=== PATIENT | male | born 1945 | race Caucasian/White ===

== ENCOUNTER 2022-05-09 13:53 | Emergency (ER) | payer OTHER ==
[~2022-05-09] VITALS: Ht 165.1 cm; Wt 88.5 kg
[2022-05-09 14:16] VITALS: BP_SYST 131
--- NOTE | 2022-05-09 16:00 | NUR ---
ER at triage examining patient.
[2022-05-09 16:03] LABS: BASOPHILS # (AUTO) 0.1 K/uL (0.0-0.2); BASOPHILS % (AUTO) 0.5 % (0.0-2.0); EOSINOPHILS # (AUTO) 0.5 K/uL (0.0-0.4); EOSINOPHILS % (AUTO) 4.3 % (0.0-4.0); HEMATOCRIT 34.3 % (36-54); HEMOGLOBIN 11.4 g/dL (14.0-18.0); LYMPHOCYTES # (AUTO) 1.6 K/uL (1.0-5.5); LYMPHOCYTES % (AUTO) 14.6 % (20.5-51.5); MEAN CORPUSCULAR HEMOGLOBIN 32 pg (27-31); MEAN CORPUSCULAR HGB CONC 33 % (32-36); MEAN CORPUSCULAR VOLUME 96 fL (79.0-98.0); MONOCYTES # (AUTO) 1.2 K/uL (0.0-1.0); MONOCYTES % (AUTO) 10.8 % (1.7-9.3); NEUTROPHILS # (AUTO) 7.5 K/uL (1.8-7.7); NEUTROPHILS % (AUTO) 69.8 % (40.0-70.0); PLATELET COUNT (AUTO) 261 K/uL (130-430); RED BLOOD CELL COUNT(AUTO) 3.56 MIL/uL (4.2-6.2); RED CELL DISTRIBUTION WIDTH 13.1 % (9.0-15.0); WHITE BLOOD COUNT (AUTO) 10.7 K/uL (4.8-10.8)
[2022-05-09 16:22] LABS: ANION GAP 11 (5-15); CALCIUM 8.9 mg/dL (8.4-11.0); CHLORIDE 102 mmol/L (98-107); CREATININE 1.36 mg/dL (0.55-1.30); GLUCOSE 95 mg/dL (70-99); UREA NITROGEN, BLOOD 29 mg/dL (8-21)
[2022-05-09 16:25] LABS: ALANINE AMINOTRANSFERASE 79 U/L (12-78); ALBUMIN 3.3 g/dL (3.4-4.8); ASPARTATE AMINOTRANSFERASE 33 U/L (10-37); C-REACTIVE PROTEIN QUANT 8.7 mg/dL (0-0.5); TOTAL BILIRUBIN 0.6 mg/dL (0.0-1.0)
[2022-05-09 17:41] LABS: INR 1.3 (0.80-1.20); PROTHROMBIN TIME 13.4 SECS (9.5-12.5)
[2022-05-09] MEDS ORDERED: CLIN-142 PO ×2 (17:44)
[2022-05-09] MEDS ORDERED: BACITRACIN 1 GM OINT TP ONE (17:45)
[2022-05-09 17:54] VITALS: BP_SYST 136
--- NOTE | 2022-05-09 17:55 | NUR ---
Patient given written and verbal discharge instructions and verbalizes understanding. ER MD discussed with patient the results and treatment provided. Patient in stable condition. ID arm band removed. Rx of clindamycin given. Patient educated on pain management and to follow up with PMD. Pain Scale 0. Opportunity for questions provided and answered. Medication side effect fact sheet provided.
== END 2022-05-09 17:55 | disposition home or self-care (01) ==
LOC: SED 13:53
DX: L03.011 Cellulitis of right finger (principal); I10 Essential (primary) hypertension; Z79.899 Other long term (current) drug therapy
CPT/HCPCS: 36415; 73140-TC; 80053; 83605; 85025; 85610-TC; 85730-TC; 86140; 99284

== ENCOUNTER 2022-05-12 13:27 | Inpatient (IN) | payer OTHER ==
[~2022-05-12] VITALS: Ht 180.3 cm; Wt 84.8 kg
[~2022-05-12 13:27] MED LIST: CLIN-142 PO
[2022-05-12 13:30] VITALS: BP_SYST 141
--- NOTE | 2022-05-12 13:30 | NUR ---
Patient to ER bed H2 to gown for evaluation. Side rails up. Report given to KIRSTIE PRIDE.
--- NOTE | 2022-05-12 13:44 | NUR ---
PT BIB SELF AWAKE AND ALERT AOX4, NO SOB OR DISTRESS. PT C/O PAIN TO R INDEX FINGER, 5/10. PT STATED HE PUNCTURE HIS FINGER ON 05/02/22 AND TRIED TO TREAT IT HIMSELF, BUT IT GOT INFECTED AND CAME TO ER ON 05/09/22. ON 05/09/[address] ALLEN WANTED TO ADMIT THE PT, BUT PT REFUSED ADMISSION. NOW PAIN ANF INFECTION HAS GOTTEN WORSE.
--- NOTE | 2022-05-12 13:47 | NUR ---
MD DR TRIVEDI AT BEDSIDE
[2022-05-12] MEDS ORDERED: VANCOMYCIN HCL 1,500 MG in NS 250 ML IV ONE (15:00)
[2022-05-12 15:20] LABS: ERYTHROCYTE SEDIMENTATION RATE 13 MM/HR (0-15)
[2022-05-12 15:22] LABS: BASOPHILS % (AUTO) 0.5 % (0.0-2.0); EOSINOPHILS # (AUTO) 0.3 K/uL (0.0-0.4); EOSINOPHILS % (AUTO) 4.3 % (0.0-4.0); HEMOGLOBIN 11.1 g/dL (14.0-18.0); LYMPHOCYTES # (AUTO) 1.3 K/uL (1.0-5.5); LYMPHOCYTES % (AUTO) 16.4 % (20.5-51.5); MEAN CORPUSCULAR HEMOGLOBIN 32 pg (27-31); MEAN CORPUSCULAR HGB CONC 34 % (32-36); MEAN CORPUSCULAR VOLUME 96 fL (79.0-98.0); MONOCYTES # (AUTO) 0.7 K/uL (0.0-1.0); NEUTROPHILS # (AUTO) 5.5 K/uL (1.8-7.7); NEUTROPHILS % (AUTO) 69.8 % (40.0-70.0); PLATELET COUNT (AUTO) 249 K/uL (130-430); RED BLOOD CELL COUNT(AUTO) 3.45 MIL/uL (4.2-6.2); RED CELL DISTRIBUTION WIDTH 13.2 % (9.0-15.0); WHITE BLOOD COUNT (AUTO) 7.8 K/uL (4.8-10.8)
[2022-05-12 15:42] LABS: ANION GAP 7 (5-15); CHLORIDE 104 mmol/L (98-107); CREATININE 1.08 mg/dL (0.55-1.30); GLUCOSE 102 mg/dL (70-99); UREA NITROGEN, BLOOD 29 mg/dL (8-21)
[2022-05-12 15:46] LABS: ALANINE AMINOTRANSFERASE 66 U/L (12-78); ASPARTATE AMINOTRANSFERASE 30 U/L (10-37); C-REACTIVE PROTEIN QUANT 1.1 mg/dL (0-0.5); TOTAL BILIRUBIN 0.4 mg/dL (0.0-1.0)
--- NOTE | 2022-05-12 16:16 | NUR ---
GENIE SWAB COLLECETD AND SENT TO LAB.
[2022-05-12] MEDS ORDERED: BACITRACIN 1 GM OINT TP ONE (17:09)
--- NOTE | 2022-05-12 18:00 | NUR ---
CONSULTATION PAGED REASON FOR CONSULTATION: CELLULITIS WAS CONSULT CALLED? Y PERSON WHO WAS NOTIFIED: [facility] CONSULTING PHYSICIAN: GOVIND DEVINE [employer]: [facility] [employer] PHONE NUMBER: [phone] REQUESTING PHYSICIAN: SONIDO LOPES
--- NOTE | 2022-05-12 18:29 | NUR ---
ADMISSION NOTE Received patient from ER via gurney. Patient admitted with diagnosis of cellulitis. Patient is awake, alert, oriented X 4. Patient oriented to hospital room, call light, toileting, pain management and safety-teach back done. Patient informed that Josh will be his nurse and that their room number is 102B. Call light within reach.
--- NOTE | 2022-05-12 18:30 | NUR ---
Patient will be admitted to care of DR PEREZ. Admitted to MED SURGE unit. Will go to room 102B. Belongings list completed. Complete and up to date summary report printed. SBAR report to be given at bedside with opportunity for questions.
[2022-05-12 18:33] VITALS: BP_SYST 168
--- NOTE | 2022-05-12 19:26 | NUR ---
CLOSING NOTE PROVIDED SBAR TO NIGHT RN, ENDORSED MED REC, PICTURE OF WOUND, AND MST ADMISSION TO RN. PATIENT IN BED, RESPIRATIONS EVEN, NON LABORED, BED IN LOW AND LOCKED POSITION CALL LIGHT WITHIN REACH. PATIENT ABLE TO MAKE NEEDS KNOWN. ENDORSED CARE TO NIGHT RN
--- NOTE | 2022-05-12 19:52 | NUR ---
PAIN SPOKE WITH DR PEREZ REGARDING THE PATIENTS NEED FOR PAIN MEDICATION. NEW ORDERS RECEIVED
[2022-05-12 20:00] VITALS: BP_SYST 136
[2022-05-12] MEDS ORDERED: HYDROcodone/ACETAMIN 5-325 MG TAB (NORCO/ VICODIN) PO PRN (20:00)
[2022-05-12] MEDS ORDERED: ACETAMINOPHEN 325 MG TABLET PO PRN (20:00)
[2022-05-13] VITALS: BP_SYST 138
[2022-05-13 01:45] VITALS: BP_SYST 136
[2022-05-13] MEDS ORDERED: TIOT4MIS5 IH (05:12)
[2022-05-13] MEDS ORDERED: LISI-209 PO (05:12)
[2022-05-13] MEDS ORDERED: OMEP20CA15 PO (05:12)
[2022-05-13] MEDS ORDERED: LIP40 PO (05:12)
[2022-05-13] MEDS ORDERED: APIX5TAB4 PO (05:12)
[2022-05-13] MEDS ORDERED: TAMS-11 PO (05:12)
[2022-05-13] MEDS: HYDROcodone/ACETAMIN 10-325 MG TAB PO PRN ×2 (08:23→16:19)
[2022-05-13] MEDS ORDERED: ONDANSETRON HCL 4 MG/2 ML VIAL IVP PRN (10:30)
[2022-05-13] MEDS ORDERED: LORazepam 2 MG/ML VIAL IVP PRN (10:30)
[2022-05-13 11:23] VITALS: BP_SYST 135
--- NOTE | 2022-05-13 12:00 | NUR ---
PATIENT C/O PAIN AND DISCOMFORT AT IV SITE IN LEFT AC, NO REDNESS OR SIGN OF INFILTRATE NOTED, IV PATENT, REMOVED PER PATIENT REQUEST, NEW 22G IV STARTED IN LFA
[2022-05-13 13:10] VITALS: BP_SYST 135
[2022-05-13] MEDS: ceFAZolin SODIUM 1 GM in D5W 50 ML IV SCH ×2 (13:36→21:22)
[2022-05-13] MEDS: NORMAL SALINE 5 ML DISP.SYRIN IVF SCH ×2 (13:44→21:24)
[2022-05-13] MEDS: IPRATROPIUM BROM 0.5 MG/2.5 ML VIAL.NEB (ATROVENT) INH SCH ×2 (15:12→20:06)
[2022-05-13 15:18] VITALS: BP_SYST 152
--- NOTE | 2022-05-13 15:30 | NUR ---
WOUND EVALUATION: Wound Consult received from Dr. Nelson. Thank you, Dr. Nelson, for the consult. Patient received in a [place] Bed, awake, alert, and oriented. Patient is ambulatory and able to turn independently. Long Score is 22. Past Medical History: lung cancer, bladder cancer, heart murmur, hyperlipidemia, hypertension, chronic obstructive pulmonary disease, tinnitus. Recent Labs: WBC 7.8, RBC 3.45, Hgb 11.1, Hct 33, Plt 249, BUN 29, creatinine 1.08, albumin 3. Microbiology: no growth with blood cultures. Intrinsic factors that delay wound healing: cancer history, hyperlipidemia, hypertension, chronic obstructive pulmonary disease. Extrinsic factors that delay wound healing: improper self care. Wound Assessment: 1. Right First Finger, Proximal Phalange, Dorsal Surface Wound, present on admission. Wound bed is 40% pink, 50% purple, 10% red. Moderate red drainage. No odor. Milka-wound intact. Measures 3.5 cm x 3.8 cm. Recommend: Cleanse wound with normal saline. Apply Venelex to wound bed. Cover with foam dressing. Wrap with Kerlix Luis wrap. Perform wound care daily, and as needed for dressing soiling or dislodgement. Also recommend: Remind patient to reposition every 2 hours with pillow support and off-load pressure areas with pillows for pressure re-distribution. Offload, elevate and float bilateral heels with pillows. Perform skin care and monitor skin integrity Q shift. Use moisture barrier cream on buttocks and other moisture susceptible areas QID and as needed for soiling.
--- NOTE | 2022-05-13 16:41 | NUR ---
PATIENT C/O 09/18 PAIN IN RIGHT FINGER, PRN NORCO ADMINISTERED PER EMAR
--- NOTE | 2022-05-13 18:52 | NUR ---
patient resting comfortably at this time, no c/o pain or discomfort, will endorse care to pm nurse
[2022-05-13 20:00] VITALS: BP_SYST 137
[2022-05-13] MEDS: ATORVASTATIN 20 MG TABLET PO SCH (21:22)
[2022-05-13] MEDS: APIXABAN 2.5 MG TABLET PO SCH (21:23)
[2022-05-14 00:16] VITALS: BP_SYST 146
[2022-05-14] MEDS: IPRATROPIUM BROM 0.5 MG/2.5 ML VIAL.NEB (ATROVENT) INH SCH ×4 (01:00→20:09)
[2022-05-14] MEDS: NORMAL SALINE 5 ML DISP.SYRIN IVF SCH ×3 (05:07→21:53)
[2022-05-14] MEDS: ceFAZolin SODIUM 1 GM in D5W 50 ML IV SCH ×3 (05:43→21:52)
[2022-05-14] MEDS: HYDROcodone/ACETAMIN 10-325 MG TAB PO PRN ×2 (06:59→15:50)
[2022-05-14 07:10] LABS: BASOPHILS # (AUTO) 0.1 K/uL (0.0-0.2); BASOPHILS % (AUTO) 0.6 % (0.0-2.0); EOSINOPHILS # (AUTO) 0.5 K/uL (0.0-0.4); EOSINOPHILS % (AUTO) 5.2 % (0.0-4.0); HEMATOCRIT 34.8 % (36-54); HEMOGLOBIN 11.7 g/dL (14.0-18.0); LYMPHOCYTES # (AUTO) 1.4 K/uL (1.0-5.5); LYMPHOCYTES % (AUTO) 15.8 % (20.5-51.5); MEAN CORPUSCULAR HEMOGLOBIN 32 pg (27-31); MEAN CORPUSCULAR HGB CONC 34 % (32-36); MEAN CORPUSCULAR VOLUME 95 fL (79.0-98.0); MONOCYTES # (AUTO) 0.9 K/uL (0.0-1.0); MONOCYTES % (AUTO) 10.3 % (1.7-9.3); NEUTROPHILS # (AUTO) 6.1 K/uL (1.8-7.7); NEUTROPHILS % (AUTO) 68.1 % (40.0-70.0); PLATELET COUNT (AUTO) 284 K/uL (130-430); RED BLOOD CELL COUNT(AUTO) 3.67 MIL/uL (4.2-6.2); RED CELL DISTRIBUTION WIDTH 13.3 % (9.0-15.0); WHITE BLOOD COUNT (AUTO) 8.9 K/uL (4.8-10.8)
--- NOTE | 2022-05-14 07:28 | NUR ---
pt slept through the night. pt medicated for pain at end of shift. dressing on r finger seen by dr. campbell. wound cx sent to lab. new dressing on r finger cdi
[2022-05-14 07:43] LABS: ANION GAP 9 (5-15); CHLORIDE 102 mmol/L (98-107); GLUCOSE 108 mg/dL (70-99); UREA NITROGEN, BLOOD 18 mg/dL (8-21)
[2022-05-14 08:00] VITALS: BP_SYST 148
[2022-05-14] MEDS ORDERED: TIOTROPIUM BROMIDE 4 GM IH SCH (09:00)
[2022-05-14] MEDS ORDERED: OMEPRAZOLE Non-Formulary 20 MG CAPSULE.DR PO SCH (09:00)
[2022-05-14] MEDS: PANTOPRAZOLE SODIUM 40 MG TAB PO SCH (10:20)
[2022-05-14] MEDS: TAMSULOSIN HCL 0.4 MG CAP PO SCH (10:20)
[2022-05-14] MEDS: lisinopriL 5 MG TABLET PO SCH (10:21)
[2022-05-14] MEDS: APIXABAN 2.5 MG TABLET PO SCH ×2 (10:23→20:43)
[2022-05-14 11:28] VITALS: BP_SYST 148
[2022-05-14] MEDS: BALSAM PERU/CASTOR OIL 56.7 GM OINT...G. TP SCH (13:17)
[2022-05-14 15:38] VITALS: BP_SYST 140
[2022-05-14 20:00] VITALS: BP_SYST 117
[2022-05-14] MEDS: ATORVASTATIN 20 MG TABLET PO SCH (20:40)
[2022-05-14] MEDS: MUPIROCIN 2% TOPICAL OINTMENT 22 GM TP SCH (20:41)
[2022-05-15] VITALS: BP_SYST 138
[2022-05-15] MEDS: IPRATROPIUM BROM 0.5 MG/2.5 ML VIAL.NEB (ATROVENT) INH SCH ×4 (01:37→20:19)
[2022-05-15] MEDS: NORMAL SALINE 5 ML DISP.SYRIN IVF SCH ×3 (05:14→22:42)
[2022-05-15] MEDS: ceFAZolin SODIUM 1 GM in D5W 50 ML IV SCH ×3 (05:15→22:41)
--- NOTE | 2022-05-15 06:23 | NUR ---
PATIENT IN BED RESTING, EYES CLOSED, NO S/S OF PAIN OR DISTRESS NOTED AT THIS TIME. PATIENT RECEIVED 2 DOSES OF ANCEF 1 GM DURING THIS SHIFT AND TOLERATED WITH NO COMPLAINTS. PATIENT VSS, PLACED NEW PIV TO R FA 22G SL. PATIENT AMB INDEPENDENTLY IN ROOM. PATIENT WITH DRSG TO RIGHT INDEX FINGER CDI, DRSG WAS CHANGED ON DAY SHIFT 05.14.2022. PATIENT C/O NO PAIN DURING THIS SHIFT, A&OX4, RA.
[2022-05-15 07:46] LABS: BASOPHILS % (AUTO) 0.3 % (0.0-2.0); EOSINOPHILS # (AUTO) 0.5 K/uL (0.0-0.4); EOSINOPHILS % (AUTO) 3.9 % (0.0-4.0); LYMPHOCYTES # (AUTO) 1.6 K/uL (1.0-5.5); MEAN CORPUSCULAR HEMOGLOBIN 32 pg (27-31); MEAN CORPUSCULAR HGB CONC 33 % (32-36); MEAN CORPUSCULAR VOLUME 96 fL (79.0-98.0); MONOCYTES # (AUTO) 1.1 K/uL (0.0-1.0); MONOCYTES % (AUTO) 8.2 % (1.7-9.3); NEUTROPHILS % (AUTO) 75.6 % (40.0-70.0); PLATELET COUNT (AUTO) 289 K/uL (130-430); RED BLOOD CELL COUNT(AUTO) 3.75 MIL/uL (4.2-6.2); WHITE BLOOD COUNT (AUTO) 13.2 K/uL (4.8-10.8)
[2022-05-15 07:51] VITALS: BP_SYST 134
[2022-05-15 07:59] LABS: ANION GAP 9 (5-15); C-REACTIVE PROTEIN QUANT 0.6 mg/dL (0-0.5); CALCIUM 9.2 mg/dL (8.4-11.0); CHLORIDE 99 mmol/L (98-107); CREATININE 1.05 mg/dL (0.55-1.30); GLUCOSE 103 mg/dL (70-99); UREA NITROGEN, BLOOD 18 mg/dL (8-21)
--- NOTE | 2022-05-15 08:00 | NUR ---
Start of shift Pt sitting up in bed eating his breakfast. No SOB/resp distress or pain/discomfort in right index finger at this time. IV in right forearm intact and patent. Bed in low position and side rails raised. Pt has Breathing treatment at this time. Pt encouraged to take deep breaths (pt has hx: COPD). Call light within reach. Addendum: 05/15/22 at 0959 by Margaux Crespo RN 2nd part of Bone scan will be done/completed this afternoon per specimen technician.
[2022-05-15] MEDS: PANTOPRAZOLE SODIUM 40 MG TAB PO SCH (08:13)
[2022-05-15] MEDS: TAMSULOSIN HCL 0.4 MG CAP PO SCH (08:13)
[2022-05-15] MEDS: APIXABAN 2.5 MG TABLET PO SCH ×2 (08:13→20:48)
[2022-05-15] MEDS: lisinopriL 5 MG TABLET PO SCH (08:13)
[2022-05-15 08:50] LABS: ERYTHROCYTE SEDIMENTATION RATE 50 MM/HR (0-15)
--- NOTE | 2022-05-15 11:15 | NUR ---
Note Dr Hernandes on the floor to assess pt and check labs/tests.
[2022-05-15 11:18] VITALS: BP_SYST 115
[2022-05-15] MEDS: HYDROcodone/ACETAMIN 10-325 MG TAB PO PRN (13:27)
--- NOTE | 2022-05-15 14:15 | NUR ---
note Pt off the floor via wheelchair for 2nd part of Bone scan on right 4th finger. Addendum: 05/15/22 at 1435 by Margaux Crespo RN pt back in room/bed from bone scan - NM merlint.
[2022-05-15] MEDS: MUPIROCIN 2% TOPICAL OINTMENT 22 GM TP SCH ×2 (15:00→20:55)
[2022-05-15] MEDS: BALSAM PERU/CASTOR OIL 56.7 GM OINT...G. TP SCH (15:00)
--- NOTE | 2022-05-15 15:14 | NUR ---
Note Right Index finger dressing change done at this time. Wound dry - no drainage or active bleeding noted at this time. Pt tolerated dressing change well. Call light within reach.
[2022-05-15 17:20] VITALS: BP_SYST 119
--- NOTE | 2022-05-15 18:30 | NUR ---
End of shift. Pt sitting up in bed eating his dinner. No SOB/resp distress noted at this time. No severe right finger pain/discomfort noted at this time. IV in right forearm intact and patent. Bed in low position and side rails raised. Call light within reach. Breathing treatments for COPD q6' helping pt with O2 sats all shift. Pt maintained with safety precautions all shift. No needs noted at this time.
[2022-05-15] MEDS: ATORVASTATIN 20 MG TABLET PO SCH (20:47)
[2022-05-15 22:03] VITALS: BP_SYST 100
[2022-05-16] VITALS: BP_SYST 117
[2022-05-16] MEDS: IPRATROPIUM BROM 0.5 MG/2.5 ML VIAL.NEB (ATROVENT) INH SCH ×3 (00:31→13:00)
--- NOTE | 2022-05-16 04:15 | NUR ---
NOTES: took over care from nurse Lindsey.
--- NOTE | 2022-05-16 04:23 | NUR ---
PT IS ALERT ORIENTED X 4 .STATES HE FEELS WELL
[2022-05-16] MEDS: ceFAZolin SODIUM 1 GM in D5W 50 ML IV SCH ×2 (05:42→13:32)
[2022-05-16] MEDS: NORMAL SALINE 5 ML DISP.SYRIN IVF SCH (05:43)
--- NOTE | 2022-05-16 06:40 | NUR ---
CLOSING NOTES; IV antibiotic completed. remain awake. IV site patent. no further complaints. for further assistance. will endorse to incoming shift.
[2022-05-16 07:20] LABS: BASOPHILS # (AUTO) 0.1 K/uL (0.0-0.2); BASOPHILS % (AUTO) 0.5 % (0.0-2.0); EOSINOPHILS # (AUTO) 0.4 K/uL (0.0-0.4); EOSINOPHILS % (AUTO) 3.6 % (0.0-4.0); HEMATOCRIT 35.5 % (36-54); HEMOGLOBIN 11.7 g/dL (14.0-18.0); LYMPHOCYTES # (AUTO) 1.5 K/uL (1.0-5.5); LYMPHOCYTES % (AUTO) 13.5 % (20.5-51.5); MEAN CORPUSCULAR HEMOGLOBIN 31 pg (27-31); MEAN CORPUSCULAR HGB CONC 33 % (32-36); MEAN CORPUSCULAR VOLUME 95 fL (79.0-98.0); MONOCYTES # (AUTO) 0.9 K/uL (0.0-1.0); MONOCYTES % (AUTO) 8.5 % (1.7-9.3); NEUTROPHILS # (AUTO) 8.1 K/uL (1.8-7.7); NEUTROPHILS % (AUTO) 73.9 % (40.0-70.0); PLATELET COUNT (AUTO) 305 K/uL (130-430); RED BLOOD CELL COUNT(AUTO) 3.75 MIL/uL (4.2-6.2); RED CELL DISTRIBUTION WIDTH 12.8 % (9.0-15.0)
[2022-05-16 07:42] LABS: ALANINE AMINOTRANSFERASE 31 U/L (12-78); ALBUMIN 2.9 g/dL (3.4-4.8); ANION GAP 8 (5-15); ASPARTATE AMINOTRANSFERASE 17 U/L (10-37); CHLORIDE 99 mmol/L (98-107); CREATININE 1.11 mg/dL (0.55-1.30); GLUCOSE 100 mg/dL (70-99); TOTAL BILIRUBIN 0.7 mg/dL (0.0-1.0); UREA NITROGEN, BLOOD 19 mg/dL (8-21)
[2022-05-16 07:57] LABS: ERYTHROCYTE SEDIMENTATION RATE 37 MM/HR (0-15)
--- NOTE | 2022-05-16 08:00 | NUR ---
AM NOTES AMBULATORY, WITH RIGHT INDEX FINGER DRESSING DRY AND INTACT. TOOK BREAKFAST, TOLERATED WELL
[2022-05-16 08:18] VITALS: BP_SYST 127
[2022-05-16 08:29] VITALS: BP_SYST 127
[2022-05-16] MEDS ORDERED: SULFAMETHOXAZOLE/TRIMETHOPR DS 1 TABLET PO SCH (09:00)
[2022-05-16] MEDS: lisinopriL 5 MG TABLET PO SCH (09:04)
[2022-05-16] MEDS: TAMSULOSIN HCL 0.4 MG CAP PO SCH (09:05)
[2022-05-16] MEDS: PANTOPRAZOLE SODIUM 40 MG TAB PO SCH (09:05)
[2022-05-16] MEDS: APIXABAN 2.5 MG TABLET PO SCH (09:06)
[2022-05-16] MEDS ORDERED: SULF1TAB48 PO (09:33)
[2022-05-16] MEDS ORDERED: HYDR-3921 PO (09:33)
[2022-05-16] MEDS ORDERED: CEPH250C PO (09:33)
[2022-05-16] MEDS ORDERED: BACTROBAN TP (09:33)
[2022-05-16] MEDS ORDERED: VENELEX60G TP (09:33)
[2022-05-16 10:58] VITALS: BP_SYST 129
[2022-05-16 12:00] VITALS: BP_SYST 125
[2022-05-16] MEDS: BALSAM PERU/CASTOR OIL 56.7 GM OINT...G. TP SCH (12:23)
[2022-05-16] MEDS: MUPIROCIN 2% TOPICAL OINTMENT 22 GM TP SCH (12:23)
--- NOTE | 2022-05-16 12:30 | NUR ---
MA HOME WITH HOME HEALTH SEEN BY DR PEREZ FOR MA TODAY WITH HOME HEALTH FOR WOUND CARE/ DISEASE MANAGEMENT. WOUND CARE PROVIDED TO PATIENT. PICTURE TAKEN PRIOR TO DISCHARGE, ( SEE MST ASSESSMENT) [facility] FOR WOUND CARE FOLLOW UP. SUPPLY FOR WOUND CARE PROVIDED TO PATIENT WHILE WAITING FOR HOME HEALTH. PATIENT EDUCATED FOR WOUND CARE DRESSING CHANGED.
--- NOTE | 2022-05-16 15:00 | NUR ---
D/C Patient Patient given medication reconciliation form and D/C instructions. Exit Care provided. Patient verbalized understanding. MD discussed with patient the results and treatment provided. Ambulatory with steady gait for discharge to home. Patient in stable condition, ID band removed. IV catheter removed, intact and dressing applied, no active bleeding. Rx of given. Patient educated on pain management. All belongings sent with patient.
== END 2022-05-16 15:00 | disposition home or self-care (01) | DRG 603 ==
LOC: SED 13:27 → SMU 16:55
PROVIDERS: ADMIT Preventive Medicine Preventive Medicine/Occupational Environmental Medicine; ATTEND Preventive Medicine Preventive Medicine/Occupational Environmental Medicine
DX: L03.011 Cellulitis of right finger (principal); E87.1 Hypo-osmolality and hyponatremia; D64.9 Anemia, unspecified; E78.5 Hyperlipidemia, unspecified; E88.09 Other disorders of plasma-protein metabolism, not elsewhere classified; I10 Essential (primary) hypertension; I25.10 Atherosclerotic heart disease of native coronary artery without angina pectoris; J44.9 Chronic obstructive pulmonary disease, unspecified; Z20.822 Contact with and (suspected) exposure to COVID-19; R73.9 Hyperglycemia, unspecified; Z85.118 Personal history of other malignant neoplasm of bronchus and lung; Z85.51 Personal history of malignant neoplasm of bladder
CPT/HCPCS: 36415; 73140-TC; 78315; 80048; 80053; 85025; 85651-TC; 86140; 87040; 87070-TC; 94640; 94760; 96365; 96366; 99285; A9503; J0690; J3370; J7050; J7060